=== PATIENT | female | born 2000 | race Caucasian/White ===

== ENCOUNTER 2024-07-30 16:34 | Emergency (ER) | payer OTHER ==
[~2024-07-30] VITALS: Ht 177.8 cm; Wt 108.9 kg
[2024-07-30] MEDS ORDERED: Naproxen 250 MG TAB PO ONE (17:05)
[2024-07-30] MEDS ORDERED: Cyclobenzaprine HCl 10 MG Tab PO ONE (17:05)
[2024-07-30] MEDS ORDERED: CYCL10 PO (17:58)
[2024-07-30] MEDS ORDERED: NAPR500 PO (17:58)
== END 2024-07-30 18:15 | disposition home or self-care (01) ==
LOC: ER 16:34
DX: S16.1XXA Strain of muscle, fascia and tendon at neck level, initial encounter (principal); S29.012A Strain of muscle and tendon of back wall of thorax, initial encounter; S09.90XA Unspecified injury of head, initial encounter; V89.2XXA Person injured in unspecified motor-vehicle accident, traffic, initial encounter; Y92.411 Interstate highway as the place of occurrence of the external cause; F17.290 Nicotine dependence, other tobacco product, uncomplicated; Z88.0 Allergy status to penicillin
CPT/HCPCS: 70450; 72070; 72125; 99284-25; A9270